=== PATIENT | female | born 1980 | race Two or more races ===

== ENCOUNTER 2023-05-27 17:18 | Emergency (ER) | payer SELFPAY ==
[~2023-05-27] VITALS: Ht 160 cm; Wt 61.3 kg
[2023-05-27] MEDS ORDERED: ONDANSETRON HCL 4 MG/2 ML VIAL IV ONE (17:45)
[2023-05-27] MEDS ORDERED: fentaNYL CITRATE 100 MCG/2 ML VL IV ONE ×2 (17:45→18:45)
[2023-05-27 18:22] VITALS: PULSE 88; RESP 20; O2SAT 98
[2023-05-27 19:44] VITALS: PULSE 81; RESP 11; O2SAT 94
[2023-05-27] MEDS ORDERED: HYDROmorphone HCL 2 MG/ML VL/or syr IV ONE (20:30)
[2023-05-27] MEDS ORDERED: diazePAM 5 MG TAB PO ONE (20:45)
[2023-05-27] MEDS ORDERED: HYDR-4798 PO (21:50)
[2023-05-27] MEDS ORDERED: IBUP-1455 PO ×2 (21:50)
[2023-05-27] MEDS ORDERED: DIA5T PO (21:50)
[2023-05-27 22:01] VITALS: BP 135/83; PULSE 70; RESP 12; TEMP 98.4; O2SAT 96
[2023-05-27] MEDS ORDERED: PERCOT PO ×2 (23:08)
[2023-05-28] MEDS ORDERED: IBUP-1455 PO (00:05)
[2023-05-28] MEDS ORDERED: PERCOT PO (00:05)
== END 2023-05-27 22:33 | disposition home or self-care (01) ==
LOC: ER 17:18
DX: S42.002A Fracture of unspecified part of left clavicle, initial encounter for closed fracture (principal); M54.2 Cervicalgia; V89.9XXA Person injured in unspecified vehicle accident, initial encounter; Y93.55 Activity, bike riding; Y92.89 Other specified places as the place of occurrence of the external cause; Y99.8 Other external cause status
CPT/HCPCS: 70450; 72125; 73000; 73030; 96374; 96375; 96376; 99285; J1170; J2405; J3010